=== PATIENT | male | born 1975 | race Caucasian/White ===

== ENCOUNTER 2025-04-07 04:39 | Emergency (ER) | payer BC, SELFPAY ==
--- OUTSIDE RECORDS SUMMARY | 2015-03-27 11:00 | XMS_ITS | Continuity of Care Document ---
Author Organization [facility] Address [address] [place] [address] Phone Care Team Providers Care Branch Rental Manager Name Role Phone Ajay Chavez MD Unavailable Unavailable Allergies, Adverse Reactions, Alerts Substance Reaction Status Criticality Sulfa (Sulfonamide Antibiotics) Active No Information Advance Directives Directive Yes / No Effective Date File Name No Information Encounters Encounter Description Practice Location Reason(s) For Visit Diagnoses Date Provider Providers Copied on Encounter [facility], [place], [address] [place] [address], [id number], tel:[phone] [facility], [place] No Information Scott Moss. [address], [place], [id number], . tel:[phone] Referring Provider: Ajay Chavez [address] [place] [address], [id number]. tel:[phone] Family History Family Member Type Diagnosis Age At Onset No Information Payers Payer name Insurance type Covered libertarian ID Authoriza tion(s) No Information Social History Type Description Quantity Date Captured Comments Alcohol Use Details No Caffeine Use Details Unknown Tobacco Use Status Non-smoker Smoking Status Unknown if ever smoked 15 Non-Smoking Tobacco Use Details : No Details Available : No Details Available Sex Male Vital Signs Date / Time: Height Weight BMI Pulse Rate Blood Pressure Temperature Respiratory Rate Body Surface Area Head Circumference BMI percentile Pulse Ox Inhaled Ox 5:15 PM 65.00 in 179.00 lbs 29.7 9 kg/m eter (2) 79 /min 145/100 mm[Hg] 98.2 F 16 /min Chief Complaint And Reason For Visit No Information Plan Of Treatment Date Type Action Status No Information History Of Present Illness Encounter Date Complaint History Of Prese nt Illness No Information Instructions Date Instruction Additional Infor mation No Information Assessments Type Assessment Date No Information
--- NOTE | ~2025-04-07 | CT_ITS ---
EXAMINATION: CT abdomen pelvis w con DATE: 04/07/2025 06:48 INDICATION: Epigastric abdominal pain TECHNIQUE: Computed tomography (CT) of the abdomen and pelvis was performed with 100 mL Omnipaque-350 intravenous contrast. Automated exposure control and iterative reconstruction technique were employed. The dose-length product was 796.84 mGy-cm. COMPARISON: None FINDINGS: Dependent atelectasis in the bilateral lower lobes with additional discoid atelectasis in the left lower lobe. Heart size is normal. No pericardial or pleural effusion. 2.9 x 2.1 cm likely hemangioma at the caudal tip of the right hepatic lobe which demonstrates combination of low attenuation with peripheral puddling of intense contrast enhancement isodense to the aorta. Gallbladder, spleen, pancreas, bilateral adrenal glands and kidneys are normal. Gas-filled duodenal diverticulum posterior to the head of the pancreas. No bowel obstruction. Multiple diverticula along the descending and sigmoid colon without adjacent from trace stranding to suggest diverticulitis. Normal appendix. Bladder is normal. No free intraperitoneal gas or fluid. No pathologically enlarged abdominal or pelvic lymphadenopathy. Mild thoracic spondylosis. IMPRESSION: 1. No acute intra-abdominal/pelvic process. 2. 2.9 x 2.1 cm lesion along the caudal margin of the right hepatic lobe with appearance most consistent with a hemangioma. Would consider multiphase pre and postcontrast MRI or CT for definitive determination. Reviewed, dictated and finalized at location A. IMPRESSION: 1. No acute intra-abdominal/pelvic process. 2. 2.9 x 2.1 cm lesion along the caudal margin of the right hepatic lobe with a ppearance most consistent with a hemangioma. Would consider multiphase pre and postcontrast MRI or CT for definitive determination.
[2025-04-07 04:43] VITALS: BP 150/108; PULSE 60; RESP 22; TEMP 36.4; O2SAT 98
[2025-04-07] MEDS: ONDANSETRON INJ 4 MG/2 ML VIAL IV PUSH (05:00)
[2025-04-07] MEDS: SODIUM CHLORIDE 0.9% IV 1,000 ML 999 ML IV CONT (05:00)
[2025-04-07] MEDS: MORPHINE SULFATE (*CRX) 4 MG/ML INJ IV PUSH ×2 (05:02→05:49)
[2025-04-07] MEDS: FAMOTIDINE 20 MG/2 ML VIAL IV PUSH (05:03)
[2025-04-07 05:17] LABS: Hematocrit 44.0 % (42.0-52.0); Hemoglobin 15.5 g/dL (14.0-18.0); Immature Granulocyte Percent A 1.4 % (0-0.5); Lymphocytes Absolute Auto 3.53 K/mm3 (0.9-3.2); Mean Corpuscular HGB Conc 35.2 g/dl (32-36); Mean Corpuscular Hemoglobin 31.3 pg (26-34); Mean Corpuscular Volume 88.7 fl (80-100); Nucleated Red Blood Cells Absolute Auto 0.000 K/mm3 (0.0-0.012); Nucleated Red Blood Cells Perc 0.0 % (0.0-0.2); Platelet Count Result 211 k/mm3 (150-375); Red Blood Count 4.96 M/mm3 (4.6-6.20); White Blood Count 11.8 K/mm3 (4.5-10.0)
--- NOTE | 2025-04-07 06:09 | ED.ABDPAIN ---
HPI - Abdominal Pain General Chief Complaint: Abdominal Pain Stated Complaint: vomitng and abd pain Time Seen by Provider: 04/07/25 04:40 History of Present Illness HPI narrative: Patient is a 49-year-old male who presents emergency department this evening complaining of abdominal pain across his epigastric region. Patient states that he has had similar symptoms in the past and he was told it was due to GERD. He states that he tried to take his anti acid medications at home prior to coming here with no improvement of his symptoms. Related Data Allergies Allergy/AdvReac Type Severity Reaction Status Date / Time Sulfa (Sulfonamide Allergy Unknown Unknown Verified 04/07/25 04:50 Antibiotics) Review of Systems Review of Systems: All systems are reviewed and are negative unless stated otherwise in the HPI. Exam Narrative: General: Alert, awake, afebrile, in moderate distress secondary to pain. HEENT: PERRL, no rhinorrhea, no post nasal drip, oropharynx clear. Neck: Trachea midline, no JVD, no lymphadenopathy. Cardiovascular: Regular rate and rhythm, no murmurs, rubs or gallops, no peripheral edema. Respiratory: Clear to auscultation bilaterally, no tachypnea, no wheezing, no rhonchi, no rubs, no respiratory distress. Abdomen: Soft, tenderness palpation over the mid epigastric region, nondistended, no rebound, no guarding, no peritoneal signs. Musculoskeletal: No joint swelling or deformity, normal muscle tone. Skin: No rashes or petechia, no signs of infection. Psychiatric: Alert and oriented, normal behavior and judgment for situation. Neurological: Alert and oriented to person, place, and time. Follows all commands. No focal deficits, speech is clear and fluent. Course Vital Signs Vital signs: Vital Signs Temperature 97.5 F L 04/07/25 04:43 Pulse Rate 60 04/07/25 04:43 Respiratory Rate 22 H 04/07/25 04:43 Blood Pressure 150/108 H 04/07/25 04:43 Pulse Oximetry 98 04/07/25 04:43 Oxygen Delivery Room Air 04/07/25 04:43 Temperature 98.7 F 04/07/25 09:18 Pulse Rate 74 04/07/25 09:18 Respiratory Rate 18 04/07/25 09:18 Blood Pressure 153/74 H 04/07/25 09:18 Pulse Oximetry 99 04/07/25 09:18 Oxygen Delivery Room Air 04/07/25 04:43 MDM - Abdominal Pain MDM Narrative Medical decision making narrative: The patient was evaluated by myself in the emergency department. History is obtained from patient who is an independent historian and physical exam was performed. External medical records were reviewed at this time. IV was established and pertinent tests were ordered. Patient was administered total of 8 mg of IV morphine and 4 mg IV Zofran for pain. EKG was obtained which revealed sinus bradycardia rate of 59 beats per minute, no evidence of acute ischemia. EKG was independently interpreted by me and is currently pending official cardiology read. Laboratory results obtained revealing no acute process. Urinalysis unremarkable. Imaging studies obtained included CT abdomen pelvis with IV contrast which was independently interpreted by me revealing [finding], which is pending final radiology interpretation. Differential diagnosis considerations include cholecystitis, pancreatitis, gastritis, peptic ulcer disease. Comorbidities impacting this visit include history of good I have evaluated and discussed social determinants of health with the patient that could potentially impact subsequent diagnosis and treatment plans. On repeat assessment of the patient, reevaluation revealed that the patient is doing well and is in no acute distress. Patient symptoms have improved since he arrived to our emergency department. Repeat vital signs were all reviewed and noted to be stable. Differential diagnosis and treatment plan were discussed with the patient at bedside. Patient agrees with discussion and after shared medical decision making agrees with discharge. All questions were answered to the patient's satisfaction. Patient will follow up with [ ] in 3-5 days. Patient was provided with strict return precautions and instructed to return to the emergency department if any new or worsening symptoms develop. The patient was discharged in stable condition. Lab Data 04/07/25 04:52 04/07/25 05:59 Labs: Lab Results 04/07/25 04/07/25 04/07/25 Range/Units 04:52 05:59 06:13 WBC 11.8 H (4.5-10.0) K/mm3 RBC 4.96 (4.6-6.20) M/mm3 Hgb 15.5 (14.0-18.0) g/dL Hct 44.0 (42.0-52.0) % MCV 88.7 (80-100) fl MCH 31.3 (26-34) pg MCHC 35.2 (32-36) g/dl RDW 13.4 (11.5-14.5) % Plt Count 211 (150-375) k/mm3 MPV 10.3 (7.4-10.4) fl Immature Gran % (Auto) 1.4 H (0-0.5) % Neut % (Auto) 61.3 (45.5-73.1) % Lymph % (Auto) 29.8 (18.3-44.2) % [place] % (Auto) 6.3 (2.6-8.5) % Eos % (Auto) 0.7 (0-4.4) % Baso % (Auto) 0.5 (0.2-1.2) % Lymph # (Auto) 3.53 H (0.9-3.2) K/mm3 [place] # (Auto) 0.7 H (0.1-0.6) K/mm3 Eos # (Auto) 0.1 (0-0.3) K/mm3 Baso # (Auto) 0.1 (0.0-0.1) K/mm3 Abs Immat Gran (auto) 0.16 H (0.00-0.031) K/mm3 Absolute Neuts (auto) 7.3 H (1.3-6.7) K/mm3 Absolute Nucleated RBC 0.000 (0.0-0.012) K/mm3 Nucleated RBC % 0.0 (0.0-0.2) % Sodium 138 (137-145) mmol/L Potassium 3.9 (3.4-5.0) mmol/L Chloride 102 (98-107) mmol/L Carbon Dioxide 23 (22-30) mmol/L Anion Gap 13 H (4-12) mmol/L BUN 18 (9-20) mg/dL Creatinine 1.04 (0.7-1.3) mg/dL Estim Creat Clear Calc Not Reportable Estimated GFR > 60 (59 - ) Glucose 171 H (65-110) mg/dL Calcium 9.8 (8.4-10.2) mg/dL Magnesium 2.0 (1.6-2.3) mg/dL Total Bilirubin 0.7 (0.2-1.3) mg/dL AST 32 (17-59) U/L ALT 30 (6-50) U/L Alkaline Phosphatase 80 (38-126) U/L Total Protein 7.4 (6.3-8.2) g/dL Albumin 4.5 (3.5-5.1) g/dL Lipase 124 (23-300) U/L Urine Color Yellow (Yellow) Urine Appearance Clear (Clear) Urine pH 7.0 (5.0-9.0) Ur Specific [place] 1.020 (1.001-1.035) Urine Protein Negative (Negative) mg/dL Urine Glucose (UA) Trace H (Negative) mg/dL Urine Ketones 1+ H (Negative) mg/dL Ur Blood (Man) Negative (Negative) Urine Nitrate Negative (Negative) Urine Bilirubin Negative (Negative) Urine Urobilinogen 1.0 (<2.0) mg/dL Leukocyte Esterase Rfl Negative (Negative) SULMEA/UL Imaging Data Radiologist's impression: ITS Impressions Abdomen/Pelvis CT 04/07/25 09:46 IMPRESSION: 1. No acute intra-abdominal/pelvic process. 2. 2.9 x 2.1 cm lesion along the caudal margin of the right hepatic lobe with appearance most consistent with a hemangioma. Would consider multiphase pre and postcontrast MRI or CT for definitive determination. Discharge Plan Discharge Clinical Impression: Abdominal pain Patient Disposition: Home Condition: Stable Instructions: Antibiotic Form, Abdominal Pain (ED) Additional Instructions: The CT scan shows small spot on your liver is recommended that you follow-up with your primary care provider and may need an MRI to further characterize this area. Patient Language: South African Prescriptions: New ondansetron 4 mg tablet,disintegrating 4 mg PO Q8H PRN (Reason: nausea and vomiting) Qty: 10 0RF pantoprazole [Protonix] 40 mg tablet,delayed release (DR/EC) 40 mg PO HS 28 Days Qty: 28 0RF Follow-up/Referrals: UNKNOWN,DOCTOR [Non-Staff] Time of Disposition: 08:29
--- NOTE | 2025-04-07 06:10 | ECG_ITS ---
Test Date: 2025-04-07 06:18:52 Measurements Intervals [place] Rate: 59 P: 16 HI: 161 QRS: -23 QRSD: 105 T: -11 QT: 407 QTc: 405 Interpretive Statements SINUS BRADYCARDIA WITH MARKED SINUS ARRHYTHMIA BORDERLINE LEFT AXIS DEVIATION [QRS AXIS < -20] VOLTAGE CRITERIA FOR LVH [MEETS CRITERIA IN ONE OF: R(aVL), S(V1), R(V5), R(V5/V6)+S(V1)] No previous ECG available for comparison Electronically Signed On 04-07-2025 10:53:52 CDT by Tristan Frausto M.D.
[2025-04-07 06:25] LABS: Alanine Aminotransferase 30 U/L (6-50); Albumin Level 4.5 g/dL (3.5-5.1); Alkaline Phosphatase 80 U/L (38-126); Anion Gap 13 mmol/L (4-12); Aspartate Amino Transferase 32 U/L (17-59); Bilirubin,Total 0.7 mg/dL (0.2-1.3); Blood Urea Nitrogen 18 mg/dL (9-20); Calcium 9.8 mg/dL (8.4-10.2); Carbon Dioxide 23 mmol/L (22-30); Chloride 102 mmol/L (98-107); Estimated Glomerular Filt Rate > 60; Glucose 171 mg/dL (65-110); Lipase 124 U/L (23-300); Magnesium 2.0 mg/dL (1.6-2.3); Potassium 3.9 mmol/L (3.4-5.0); Sodium 138 mmol/L (137-145); Total Protein 7.4 g/dL (6.3-8.2)
[2025-04-07 06:25] LABS: Add Urine Microscopic? NO; Appearance Urine Clear (Clear); Glucose Urine UA Trace mg/dL (Negative); Leukocyte Esterase Ur Negative LEU/UL (Negative); Nitrate Urine Negative (Negative); Specific Grav Ur 1.020 (1.001-1.035)
--- NOTE | 2025-04-07 06:40 | PC.NURSE ---
Pt taken to imaging in stretcher by tech
[2025-04-07 09:18] VITALS: BP 153/74; PULSE 74; RESP 18; TEMP 37.1; O2SAT 99
== END 2025-04-07 09:04 | disposition home or self-care (01) ==
PROVIDERS: Emergency Provider Emergency Medicine
DX: R10.13 Epigastric pain (principal); K76.9 Liver disease, unspecified; R00.1 Bradycardia, unspecified
CPT/HCPCS: 36415; 74177; 80053; 81003; 83690; 83735; 85025; 93005; 96361; 96374; 96375; 96376; 99284; J2270; J2405; J7030; Q9967

== ENCOUNTER 2025-04-08 17:34 | Observation (INO) | payer BC, SELFPAY ==
[2025-04-08] VITALS (7 sets, daily range): BP systolic 118–146; BP diastolic 88–101; PULSE 68–82; RESP 16–17; TEMP 36.6–37.2; O2SAT 94–97
--- NOTE | ~2025-04-08 | US_ITS ---
EXAMINATION: US abdomen limited DATE: 04/09/2025 09:55 INDICATION: Acute cholecystitis TECHNIQUE: Multiple grayscale and Doppler ultrasound images of the abdomen were obtained. COMPARISON: CT dated 04/07/2025 and 04/08/2025 FINDINGS: Liver has normal contour, with a smooth surface. There is increased parenchymal echogenicity and coarsened echotexture consistent with diffuse hepatic steatosis. There are small geographic regions of less echogenic focal fatty sparing along the gallbladder fossa. No intrahepatic biliary duct dilation suspected. Portal venous flow was seen in the hepatopetal, normal direction and has normal Doppler waveform. Mobile debris and shadowing gallstones in the dependent aspect of the gallbladder. Gallbladder appears normal with no abnormal wall thickening. There is however mild pericholecystic edema as seen on prior CT and which remains suspicious for acute cholecystitis. Sonographic Baca sign was however reported as negative by the corporate planning manager. The common bile duct measures up to 4 mm in maximal diameter which is normal. IMPRESSION: 1. Cholelithiasis with pericholecystic edema and inflammatory stranding but with negative sonographic Baca sign which is equivocal for acute cholecystitis. Could consider HIDA scan for further evaluation. Reviewed, dictated and finalized at location A. IMPRESSION: 1. Cholelithiasis with pericholecystic edema and inflammatory stranding but wit h negative sonographic Baca sign which is equivocal for acute cholecystitis. Could consider HIDA scan for further evaluation.
--- NOTE | ~2025-04-08 | CT_ITS ---
Exam: CT abdomen and pelvis without contrast Clinical History: [Epigastric abdominal pain radiating to left upper quadrant and right upper quadrant ] Comparison: [ CT abdomen and pelvis 04/07/2025] Technique: Multiple axial CT images of the abdomen and pelvis were obtained with and without IV contrast. Sagittal and coronal reformatted images were obtained. FINDINGS: Lung bases: [Small opacities in the lower lungs ] Liver: [ No intrahepatic biliary duct dilatation.] There is a 2.1 x 2.9 cm lesion in the right lobe of the liver posteriorly and caudally which demonstrates peripheral interrupted enhancement which fills in with delayed imaging. CT findings suggest a benign hemangioma. Gallbladder: Mild thickening of the weinstein of the gallbladder with a small amount of pericholecystic fat stranding and fluid. Findings are concerning for acute cholecystitis. Consider a HIDA scan for further assessment. Common bile duct: [ Normal caliber.] [ No stones.] Spleen: [ Within normal limits.] Pancreas: [ No mass. No pancreatic fluid collection.] Adrenals: [ No masses.] Kidneys: [ No masses. No hydronephrosis.][ ] Lymph nodes: [ No adenopathy in the abdomen or pelvis.] Stomach, small bowel and colon: [ No bowel wall thickening or obstruction.] Peritoneum cavity: Small amount of fluid in the pelvis. Bladder: [ Unremarkable.] Osseous structures: [ No acute fracture or destructive lesion.] [ Multilevel degenerative change in the visualized spine.] Abdominal aorta: [ No aneurysm.] Additional findings: [ None of significance.] IMPRESSION: 1. Mild thickening of the weinstein of the gallbladder with a small amount of pericholecystic fat stranding and fluid. Findings are concerning for acute cholecystitis. Consider a HIDA scan for further assessment. 2. CT findings suggest a benign 2.9 cm hemangioma in the right hepatic lobe. Reviewed, dictated and finalized at location Q. IMPRESSION: 1. Mild thickening of the weinstein of the gallbladder with a small amount of peric holecystic fat stranding and fluid. Findings are concerning for acute cholecyst itis. Consider a HIDA scan for further assessment. 2. CT findings suggest a benign 2.9 cm hemangioma in the right hepatic lobe.
--- NOTE | ~2025-04-08 | XR_ITS ---
EXAMINATION: XR chest 1V portable 04/08/2025 20:10 INDICATION: Epigastric pain. Radiates to chest TECHNIQUE:A single AP semiupright portable frontal image of the chest was obtained COMPARISON: None FINDINGS: Small opacities in the lower lungs The cardiomediastinal silhouette is within normal limits. There are no pleural effusions. There is no pneumothorax suspected. IMPRESSION: 1: Small opacities in the mid and lower lungs which represents atelectasis/scarring or infiltrates. Reviewed, dictated and finalized at location Q. IMPRESSION: 1: Small opacities in the mid and lower lungs which represents atelectasis/scar ring or infiltrates.
--- NOTE | 2025-04-08 19:03 | ED.ABDPAIN ---
HPI - Abdominal Pain General Chief Complaint: Abdominal Pain Stated Complaint: returning for stomach pain, seen here yesterday Time Seen by Provider: 04/08/25 18:27 Source: patient and family Mode of arrival: ambulatory Limitations: no limitations History of Present Illness HPI narrative: Patient presents with epigastric abdominal pain starting 2am Wednesday for which he was seen in the ED yesterday. Given medications and prescribed protonix (not taken as he had received dose in the ED) and Zofran (took earlier today). Not improved. Had previously been told when this occurred it might be gas pain versus GERD. Somewhat recently moved to this area. Unable to eat. Prevoiusly on sucralfate by an ER physician in [place], [place]. Pain 01/09. Took Tylenol [employer] AND [employer]. Nauseated ; no vomit today but yesterday. NO fevers but chills. no alcohol. NO NSAIDs. No prevoius abdominal surgeries. No regular GI needs. Had a colonoscopy last year which was normal. Pain radiates laterally under ribs, RUQ and LUQ and into chest. Related Data Home Medications ?Medication ?Instructions ?Recorded ?Confirmed ?Last Taken ?Type chlorthalidone 25 mg tablet mg 04/09/25 04/08/25 History potassium chloride 10 mEq meq PO 04/09/25 04/08/25 History tablet,extended release Allergies Allergy/AdvReac Type Severity Reaction Status Date / Time Sulfa (Sulfonamide Allergy Unknown Unknown Verified 04/07/25 04:50 Antibiotics) PMFSH Past Medical History Medical History Hypertension Surgical History Surgical History History of surgery on arm Social History Social History (Updated 04/10/25 @ 19:24 by Sudha Jerome MD) Smoking status: Never smoker Alcohol intake: never Substance use: never Substance use type: does not use Lack of Transportation: No Lack of Food: Never True Current Housing: I Have Housing Concerned About Future Housing: No Difficulty Paying Gas/Electric Bills: No Difficulty Paying for Meds: No Currently Unemployed: No Education: Bachelor's Degree Difficulty w/ Childcare or Family Care: No Living arrangements: with family Spiritual care concerns: No Exam Narrative: GENERAL: Well-appearing, well-nourished HEAD: Normocephalic, atraumatic. EYES: Non injected, non icteric ENT: Nares clear, no rhinorrhea or epistaxis. Gross auditory acuity intact. NECK: Supple. No meningismus. CHEST: Speaking in full sentences. No respiratory distress. HEART: Regular rate and rhythm. . ABDOMEN: Soft, nondistended. TTP in RUQ and LUQ and epigastrium. Not peritoneal. Baca sign +. EXTREMITIES: Normal range of motion. No lower extremity edema. SKIN: Warm, dry, no rash. NEURO: No focal deficits. Alert and oriented. Answering questions. Following commands. Normal speech without aphasia or dysarthria. PSYCH: Normal mood and affect. Course Vital Signs Vital signs: Vital Signs Temperature 98.9 F 04/08/25 17:35 Pulse Rate 82 04/08/25 17:35 Respiratory Rate 17 04/08/25 17:35 Blood Pressure 118/88 04/08/25 17:35 Pulse Oximetry 97 04/08/25 17:35 Oxygen Delivery Room Air 04/08/25 17:35 Temperature 99.1 F 04/10/25 12:00 Pulse Rate 70 04/10/25 12:00 Respiratory Rate 18 04/10/25 12:00 Blood Pressure 133/79 04/10/25 12:00 Pulse Oximetry 100 04/10/25 12:00 Oxygen Delivery Room Air 04/10/25 08:00 Oxygen Flow Rate 8 04/09/25 19:59 MDM - Abdominal Pain MDM Narrative Medical decision making narrative: Patient presents with epigastric abdominal pain starting 2am Wednesday. Seen yesterday in the ED for the same. In the emergency department they are afebrile with vital signs within normal limits. I did discuss with radiology receptionist to ensure that the correct study was ordered based on a notation in the scan obtained 04/07/2025. Because patient also endorses some radiation of pain into the chest, EKG, chest x-ray, and troponin ordered as well. Patient has microscopic hematuria on urinalysis. He has a leukocytosis, increased from most recent. Very mild hypokalemia, PO repletion ordered. Magnesium normal. There is a considerable delay in obtaining CT interpretation. Once CT results (as below), confirmed with patinet not on anticoagulation and last oral intake was at 12:30pm 04/08/25. COnfirmed again no previous abdominal surgeries. Discussed with on air host surgeon Dr Parsons who recommends antibiotics, npo, and order RUQ US to be performed in the AM, admit to medicine. Discussed with on air host hospitalist. Otherwise stable. PRN orders available for nausea and analgesics. Differential Diagnosis Differential diagnosis: Likely abdominal pain, calculus of kidney, constipation, diverticulitis, pancreatitis and other (biliary pathology; ACS; gastritis; GERD; malignancy; lobar PNA) Medical Records Attestation: I reviewed the patient's medical records. Medical records narrative: CT abd/pelvis with conrast 04/07/25 : IMPRESSION: 1. No acute intra-abdominal/pelvic process. 2. 2.9 x 2.1 cm lesion along the caudal margin of the right hepatic lobe with appearance most consistent with a hemangioma. Would consider multiphase pre and postcontrast MRI or CT for definitive determination. Lab Data Attestation: I reviewed the patient's lab results. 04/10/25 05:20 04/10/25 05:20 Labs: Lab Results 04/08/25 Range/Units 18:57 WBC 16.4 H (4.5-10.0) K/mm3 RBC 5.11 (4.6-6.20) M/mm3 Hgb 16.0 (14.0-18.0) g/dL Hct 44.7 (42.0-52.0) % MCV 87.5 (80-100) fl MCH 31.3 (26-34) pg MCHC 35.8 (32-36) g/dl RDW 13.3 (11.5-14.5) % Plt Count 216 (150-375) k/mm3 MPV 10.1 (7.4-10.4) fl Immature Gran % (Auto) 0.6 H (0-0.5) % Neut % (Auto) 72.0 (45.5-73.1) % Lymph % (Auto) 18.9 (18.3-44.2) % [place] % (Auto) 7.5 (2.6-8.5) % Eos % (Auto) 0.7 (0-4.4) % Baso % (Auto) 0.3 (0.2-1.2) % Lymph # (Auto) 3.11 (0.9-3.2) K/mm3 [place] # (Auto) 1.2 H (0.1-0.6) K/mm3 Eos # (Auto) 0.1 (0-0.3) K/mm3 Baso # (Auto) 0.1 (0.0-0.1) K/mm3 Abs Immat Gran (auto) 0.10 H (0.00-0.031) K/mm3 Absolute Neuts (auto) 11.8 H (1.3-6.7) K/mm3 Absolute Nucleated RBC 0.000 (0.0-0.012) K/mm3 Nucleated RBC % 0.0 (0.0-0.2) % Sodium 137 (137-145) mmol/L Potassium 3.3 L (3.4-5.0) mmol/L Chloride 101 (98-107) mmol/L Carbon Dioxide 26 (22-30) mmol/L Anion Gap 10 (4-12) mmol/L BUN 10 D (9-20) mg/dL Creatinine 0.99 (0.7-1.3) mg/dL Estim Creat Clear Calc 82 ml/min Estimated GFR > 60 (59 - ) Glucose 129 H (65-110) mg/dL Calcium 9.4 (8.4-10.2) mg/dL Magnesium 2.0 (1.6-2.3) mg/dL Total Bilirubin 1.7 H (0.2-1.3) mg/dL AST 33 (17-59) U/L ALT 34 (6-50) U/L Alkaline Phosphatase 79 (38-126) U/L Troponin I < 0.012 (0.000-0.034) ng/mL Total Protein 8.0 (6.3-8.2) g/dL Albumin 4.5 (3.5-5.1) g/dL Lipase 39 (23-300) U/L Urine Color Yellow (Yellow) Urine Appearance Turbid H (Clear) Urine pH 6.0 (5.0-9.0) Ur Specific [place] 1.027 (1.001-1.035) Urine Protein Trace (Negative) mg/dL Urine Glucose (UA) Negative (Negative) mg/dL Urine Ketones 2+ H (Negative) mg/dL Ur Blood (Man) 1+ H (Negative) Urine Nitrate Negative (Negative) Urine Bilirubin Negative (Negative) Urine Urobilinogen 1.0 (<2.0) mg/dL Leukocyte Esterase Rfl Negative (Negative) SULEMA/UL Urine RBC 11-20 H (0-2) /hpf Urine WBC 0-5 (0-3) /hpf Ur Squamous Epith Cells None seen (Few) /hpf Urine Bacteria None seen /hpf Urine Casts 0-2 Imaging Data Radiologist's impression: ITS Impressions Chest X-Ray 04/09/25 09:24 IMPRESSION: 1: Small opacities in the mid and lower lungs which represents atelectasis/scarring or infiltrates. Abdomen Ultrasound 04/09/25 10:22 IMPRESSION: 1. Cholelithiasis with pericholecystic edema and inflammatory stranding but with negative sonographic Baca sign which is equivocal for acute cholecystitis. Could consider HIDA scan for further evaluation. Abdomen/Pelvis CT 04/09/25 10:49 IMPRESSION: 1. Mild thickening of the weinstein of the gallbladder with a small amount of pericholecystic fat stranding and fluid. Findings are concerning for acute cholecystitis. Consider a HIDA scan for further assessment. 2. CT findings suggest a benign 2.9 cm hemangioma in the right hepatic lobe. CXR Stat Rad: Hypoinflation, consider interstitial edema or atypical infection CT Abd & Pelvis w/ wo contrast Stat Rad: Compared to prior [address] Probable acute cholecystitis with gallbladder distention and pericholecystic induration. Recommend scintigraphy if ambiguous. ECG Data EKG #1: Attestation: I personally reviewed and interpreted this ECG as follows: ECG completion date: 04/08/25 ECG completion time: 20:32 Prior ECG tracings: available for review (04/07/25 - had T wave inversion in III and T wave flattening versus inversion in avf ;) Interpretation: Normal sinus rhythm at a rate of 68 beats per minute. OR interval 158. QRS 107. QT/QTC 384/410. Progression the precordial leads. New inversion from as AVF upright in contiguous inferior lead 2. No Other T-wave inversions. Discharge Plan Discharge Clinical Impression: Epigastric abdominal pain, Microscopic hematuria, Leukocytosis, Hypokalemia, Acute cholecystitis Patient Disposition: Still a Patient Condition: Stable
[2025-04-08 19:05] LABS: Hematocrit 44.7 % (42.0-52.0); Hemoglobin 16.0 g/dL (14.0-18.0); Immature Granulocyte Percent A 0.6 % (0-0.5); Lymphocytes Absolute Auto 3.11 K/mm3 (0.9-3.2); Mean Corpuscular HGB Conc 35.8 g/dl (32-36); Mean Corpuscular Hemoglobin 31.3 pg (26-34); Mean Corpuscular Volume 87.5 fl (80-100); Nucleated Red Blood Cells Absolute Auto 0.000 K/mm3 (0.0-0.012); Nucleated Red Blood Cells Perc 0.0 % (0.0-0.2); Platelet Count Result 216 k/mm3 (150-375); Red Blood Count 5.11 M/mm3 (4.6-6.20); White Blood Count 16.4 K/mm3 (4.5-10.0)
[2025-04-08 19:09] LABS: Add Urine Microscopic? YES; Appearance Urine Turbid (Clear); Glucose Urine UA Negative (Negative); Leukocyte Esterase Ur Negative LEU/UL (Negative); Nitrate Urine Negative (Negative); Non Pathogenic Casts 0-2; Specific Grav Ur 1.027 (1.001-1.035)
--- NOTE | 2025-04-08 19:15 | ECG_ITS ---
Test Date: 2025-04-08 20:32:59 Measurements Intervals [place] Rate: 68 P: 12 NE: 158 QRS: -17 QRSD: 107 T: -7 QT: 384 QTc: 410 Interpretive Statements SINUS RHYTHM LEFT VENTRICULAR HYPERTROPHY NONSPECIFIC T-WAVE ABNORMALITIES Compared to ECG 04/07/2025 06:18:52 NO SIGNIFICANT CHANGES Electronically Signed On 04-08-2025 20:40:27 CDT by Tristan Frausto M.D.
[2025-04-08 19:18] LABS: Alanine Aminotransferase 34 U/L (6-50); Albumin Level 4.5 g/dL (3.5-5.1); Alkaline Phosphatase 79 U/L (38-126); Anion Gap 10 mmol/L (4-12); Aspartate Amino Transferase 33 U/L (17-59); Bilirubin,Total 1.7 mg/dL (0.2-1.3); Blood Urea Nitrogen 10 mg/dL (9-20); Calcium 9.4 mg/dL (8.4-10.2); Carbon Dioxide 26 mmol/L (22-30); Chloride 101 mmol/L (98-107); Estimated CRCL calculation 82 ml/min; Estimated Glomerular Filt Rate > 60; Glucose 129 mg/dL (65-110); Lipase 39 U/L (23-300); Potassium 3.3 mmol/L (3.4-5.0); Sodium 137 mmol/L (137-145); Total Protein 8.0 g/dL (6.3-8.2)
[2025-04-08 19:46] LABS: Troponin I < 0.012 ng/mL (0.000-0.034)
[2025-04-08 20:11] LABS: Magnesium 2.0 mg/dL (1.6-2.3)
[2025-04-08] MEDS: POTASSIUM BICARBONATE 25 MEQ TABEF PO (20:17)
[2025-04-08] MEDS: ONDANSETRON INJ 4 MG/2 ML VIAL IV PUSH (20:17)
[2025-04-08] MEDS: HYDROmorphone HCL INJ (*CRX) 1 MG/ML SYR 0.5 MG IV PUSH (20:17)
[2025-04-09] VITALS (13 sets, daily range): BP systolic 90–146; BP diastolic 55–92; PULSE 76–100; RESP 14–20; TEMP 36.2–38; O2SAT 90–96; BMI 31.7; BMI 31.6
[2025-04-09] MEDS: PIPERACILLIN/TAZOBACTAM SOD 4.5 GM in SODIUM CHLORIDE 0.9% IV 100 ML 200 ML IVPB (01:03)
[2025-04-09] MEDS: HYDROmorphone HCL INJ (*CRX) 1 MG/ML SYR 0.5 MG IV PUSH ×4 (01:03→21:10)
[2025-04-09] MEDS: ONDANSETRON INJ 4 MG/2 ML VIAL IV PUSH (01:04)
--- NOTE | 2025-04-09 01:44 | PC.NURSE ---
Patient arrived on unit to 302 at 0119 via wheelchair. Oriented to room, call light, fall precautions and diet. Patient verbalizes understanding.
[2025-04-09] MEDS: LACTATED RINGERS 1,000 ML 125 ML IV CONT ×3 (01:48→21:07)
--- NOTE | 2025-04-09 02:51 | PM.IMHP ---
H&P: HPI History of Present Illness Date/Time: 04/09/25 02:51 Chief Complaint: Abdominal pain, vomiting Narrative: 49-year-old male presents to [facility] ER on 04/08/2025 with the complaint of persistent nausea vomiting and abdominal pain. He has a history of hypertension. He initially presented to [facility] on 04/07/2025 and had a abdomen pelvis CT with contrast performed. This did not demonstrate any acute intra-abdominal or pelvic process but a 2.9 x 2.1 cm lesion along the caudal margin of the right hepatic lobe with appearance most consistent with a hemangioma. He was sent home with Protonix and Zofran advised to follow-up in the outpatient setting. He received morphine total of 8 mg and was feeling better. Since he got home he has been having progressively worsening abdominal pain which she describes as bilateral under the ribs. However when ER physician performed a Baca test he had severe right upper quadrant pain. He has had a poor appetite in the past few days and last had a small bowel movement on 04/07/2025. Denies fever, shortness of breath, chest pain, abdominal distension, diarrhea. He has never had any abdominal surgeries. He denies smoking, illicit drug use, alcohol abuse. He lives with his . ER findings include probable acute cholecystitis with gallbladder distention and pericholecystic induration on CT of abdomen pelvis with and without contrast compared to the prior CT. Chest x-ray unrevealing of acute cardiopulmonary abnormality, official radiology interpretation is pending. His WBC count is 16.4 increased from 11.8 the day prior potassium 3.3. Total bilirubin 1.7 increasing from normal the day prior. LFTs otherwise within normal limits. Troponin 0.012. EKG without acute ST changes. Lipase 39. He was given Zosyn, Zofran, Dilaudid 0.5 mg IV x 2, potassium bicarbonate 25 mEq. Started on lactated Ringer's at 125 cc/hour. Patient was feeling much better after this. Review of Systems Review of Systems: All systems reviewed & are unremarkable except as noted in HPI and below (Subjective) [facility] Past Medical History Medical History (Updated 04/09/25 @ 02:49 by Fatmata Mar RN) Hypertension Social History Social History Smoking status: Never smoker Alcohol intake: never Substance use: never Substance use type: does not use Lack of Transportation: No Lack of Food: Never True Current Housing: I Have Housing Concerned About Future Housing: No Difficulty Paying Gas/Electric Bills: No Difficulty Paying for Meds: No Currently Unemployed: No Education: Bachelor's Degree Difficulty w/ Childcare or Family Care: No Spiritual care concerns: No Meds Home Medications and Allergies Home Medications ?Medication ?Instructions ?Recorded ?Confirmed ?Type ondansetron 4 mg disintegrating 4 mg PO Q8H PRN nausea and 04/07/25 Rx tablet vomiting #10 tabs pantoprazole 40 mg tablet,delayed 40 mg PO HS 4 weeks #28 tabs 04/07/25 Rx release (Protonix) chlorthalidone 25 mg tablet mg 04/09/25 History potassium chloride 10 mEq meq PO 04/09/25 History tablet,extended release Allergies Allergy/AdvReac Type Severity Reaction Status Date / Time Sulfa (Sulfonamide Allergy Unknown Unknown Verified 04/07/25 04:50 Antibiotics) Vital Signs Vital Signs - 24 hr 04/08/25 17:35 04/08/25 18:31 04/08/25 19:17 Temperature 98.9 F 97.8 F Pulse Rate 82 68 Respiratory Rate 17 16 Blood Pressure 118/88 135/92 H 146/99 H Pulse Oximetry 97 96 94 Oxygen Delivery Room Air 04/08/25 20:02 04/08/25 21:31 04/08/25 22:16 Temperature Pulse Rate Respiratory Rate Blood Pressure 127/96 H 139/101 H 140/98 H Pulse Oximetry 97 95 95 Oxygen Delivery 04/08/25 23:01 04/09/25 01:22 Temperature 97.2 F L Pulse Rate 89 Respiratory Rate 16 Blood Pressure 124/91 H 133/89 Pulse Oximetry 94 95 Oxygen Delivery Exam Const: General: comfortable and no acute distress Other: A&O x3 HENMT: Mouth: Yes dry mucous membranes Eyes: Pupils: Equal, round and reactive pupils present Resp: Effort & Inspection: normal respiratory effort Auscultation: clear to auscultation bilaterally Cardio: Rate: regular rate Rhythm: regular rhythm GI: Inspection: non-distended GI Palp: Yes Soft to palpation Other: Hypoactive bowel sounds. Positive Baca sign : General: Yes bladder normal to palpation Neuro: Motor exam (neuro): 5/5 motor strength present throughout Extrem: General: no edema H&P: Results Labs Labs: Short CBC 04/08/25 Range/Units 18:57 WBC 16.4 H (4.5-10.0) K/mm3 Hgb 16.0 (14.0-18.0) g/dL Hct 44.7 (42.0-52.0) % Plt Count 216 (150-375) k/mm3 BMP 04/08/25 18:57 Sodium 137 Potassium 3.3 L Chloride 101 Carbon Dioxide 26 BUN 10 D Creatinine 0.99 Glucose 129 H Calcium 9.4 Cardiac Enzymes 04/08/25 Range/Units 18:57 Troponin I < 0.012 (0.000-0.034) ng/mL Liver Function 04/08/25 Range/Units 18:57 Total Bilirubin 1.7 H (0.2-1.3) mg/dL AST 33 (17-59) U/L ALT 34 (6-50) U/L Alkaline Phosphatase 79 (38-126) U/L Albumin 4.5 (3.5-5.1) g/dL Urine 04/08/25 Range/Units 18:57 Urine Color Yellow (Yellow) Urine Appearance Turbid H (Clear) Urine pH 6.0 (5.0-9.0) Ur Specific [place] 1.027 (1.001-1.035) Urine Protein Trace (Negative) mg/dL Urine Glucose (UA) Negative (Negative) mg/dL Assessment and Plan Assessment and plan (1) Acute cholecystitis: Code(s): K81.0 - Acute cholecystitis Status: Acute (2) Leukocytosis: Code(s): D72.829 - Elevated white blood cell count, unspecified Status: Acute (3) Hypokalemia: Code(s): E87.6 - Hypokalemia Status: Acute Plan 49-year-old male presents to [facility] ER on 04/08/2025 with the complaint of persistent nausea vomiting and abdominal pain. He has a history of hypertension. He initially presented to [facility] on 04/07/2025 and had a abdomen pelvis CT with contrast performed. This did not demonstrate any acute intra-abdominal or pelvic process but a 2.9 x 2.1 cm lesion along the caudal margin of the right hepatic lobe with appearance most consistent with a hemangioma. He was sent home with Protonix and Zofran advised to follow-up in the outpatient setting. He received morphine total of 8 mg and was feeling better. Since he got home he has been having progressively worsening abdominal pain which she describes as bilateral under the ribs. However when ER physician performed a Baca test he had severe right upper quadrant pain. He has had a poor appetite in the past few days and last had a small bowel movement on 04/07/2025. Denies fever, shortness of breath, chest pain, abdominal distension, diarrhea. He has never had any abdominal surgeries. He denies smoking, illicit drug use, alcohol abuse. He lives with his . ER findings include probable acute cholecystitis with gallbladder distention and pericholecystic induration on CT of abdomen pelvis with and without contrast compared to the prior CT. Chest x-ray unrevealing of acute cardiopulmonary abnormality, official radiology interpretation is pending. His WBC count is 16.4 increased from 11.8 the day prior potassium 3.3. Total bilirubin 1.7 increasing from normal the day prior. LFTs otherwise within normal limits. Troponin 0.012. EKG without acute ST changes. Lipase 39. He was given Zosyn, Zofran, Dilaudid 0.5 mg IV x 2, potassium bicarbonate 25 mEq. Started on lactated Ringer's at 125 cc/hour. Patient was feeling much better after this. ----- General surgery consulted from the ER. They requested admission with the hospitalist service and a right upper quadrant ultrasound. We will continue Zosyn at 3.375 g IV q.6 hours. Repeat potassium to ensure improvement of hypokalemia. Continue LR 125 cc/hour. Zofran p.r.n.. Dilaudid p.r.n.. Patient does not have any lung conditions or MARYURI. He is on room air. NPO. SCDs. Trend LFTs. Trend leukocytosis. Appreciate General surgery recommendations. Hold TIP STRETCHER antihypertensives. Monitor blood pressure. Patient wishes to be full code. He is independent at baseline and lives with at home. Hospitalist [facility] Advance Care Plan I have confirmed that the patient's Advanced Care Plan is present, code status is documented, or surrogate decision maker is listed in patient medical record.: Yes Medication Reconciliation I have utilized all available resources to obtain, update and review the patients current medications (includes all prescriptions, OTC, herbals, cannabis, and nutritional supplements).: Yes
[2025-04-09] MEDS: PIPERACILLIN/TAZOBACTAM SOD 3.375 GM in SODIUM CHLORIDE 0.9% IV 50 ML 100 ML IVPB ×3 (05:13→18:58)
[2025-04-09 05:44] LABS: Hematocrit 41.3 % (42.0-52.0); Hemoglobin 14.2 g/dL (14.0-18.0); Immature Granulocyte Percent A 0.5 % (0-0.5); Lymphocytes Absolute Auto 2.79 K/mm3 (0.9-3.2); Mean Corpuscular HGB Conc 34.4 g/dl (32-36); Mean Corpuscular Hemoglobin 30.8 pg (26-34); Mean Corpuscular Volume 89.6 fl (80-100); Nucleated Red Blood Cells Absolute Auto 0.000 K/mm3 (0.0-0.012); Nucleated Red Blood Cells Perc 0.0 % (0.0-0.2); Platelet Count Result 180 k/mm3 (150-375); Red Blood Count 4.61 M/mm3 (4.6-6.20); White Blood Count 13.0 K/mm3 (4.5-10.0)
[2025-04-09 05:57] LABS: INR 1.1; Prothrombin Time 14.4 Seconds (11.1-14.7)
[2025-04-09 05:58] LABS: Alanine Aminotransferase 32 U/L (6-50); Albumin Level 3.9 g/dL (3.5-5.1); Alkaline Phosphatase 67 U/L (38-126); Anion Gap 8 mmol/L (4-12); Aspartate Amino Transferase 34 U/L (17-59); Bilirubin,Total 1.8 mg/dL (0.2-1.3); Blood Urea Nitrogen 10 mg/dL (9-20); Calcium 8.8 mg/dL (8.4-10.2); Carbon Dioxide 31 mmol/L (22-30); Chloride 98 mmol/L (98-107); Estimated CRCL calculation 76 ml/min; Estimated Glomerular Filt Rate > 60; Glucose 120 mg/dL (65-110); Magnesium 2.0 mg/dL (1.6-2.3); Potassium 3.3 mmol/L (3.4-5.0); Sodium 137 mmol/L (137-145); Total Protein 6.9 g/dL (6.3-8.2)
[2025-04-09 06:15] LABS: Procalcitonin 0.2 ng/mL
--- NOTE | 2025-04-09 07:10 | PM.IMPN ---
Progress Note: A&P Assessment and Plan (1) Acute cholecystitis: Code(s): K81.0 - Acute cholecystitis Status: Acute Assessment and Plan: ER findings include probable acute cholecystitis with gallbladder distention and pericholecystic induration on CT of abdomen pelvis with and without contrast compared to the prior CT. Chest x-ray unrevealing of acute cardiopulmonary abnormality, official radiology interpretation is pending. His WBC count is 16.4 increased from 11.8 the day prior Total bilirubin 1.7 increasing from normal the day prior. LFTs otherwise within normal limits. General surgery consulted US of RUQ completed, pending results NPO IV Zosyn IV fluids plan for OR today for lap cholecystectomy (2) Leukocytosis: Code(s): D72.829 - Elevated white blood cell count, unspecified Status: Acute Assessment and Plan: WBC 16.4 on admission WBC 13 today continue IV Zosyn f/u blood cultures AM labs (3) Hypokalemia: Code(s): E87.6 - Hypokalemia Status: Acute Assessment and Plan: k 3.3 today 40 mEq potassium chloride IVPB ordered check magnesium level AM labs Subjective Date/time seen: 04/09/25 07:10 Interval history: Patient is a 49 year old male with PMH of HTN. Patient presented to the ER with abdominal pain. ER findings include probable acute cholecystitis with gallbladder distention and pericholecystic induration on CT of abdomen pelvis with and without contrast compared to the prior CT. Chest x-ray unrevealing of acute cardiopulmonary abnormality, official radiology interpretation is pending. His WBC count is 16.4 increased from 11.8 the day prior potassium 3.3. Total bilirubin 1.7 increasing from normal the day prior. LFTs otherwise within normal limits. Troponin 0.012. EKG without acute ST changes. Lipase 39. Patient was admitted for further evaluation and treatment. General surgery was consulted. Patient seen and examined for follow up. Patient seen in his room, lying in bed, in no acute distress. Patient with complaints of a headache, new order for Tylenol PRN. Patient had an US of the abdomen, results are pending. Patient is NPO with plans for surgery this afternoon. Patient's potassium level is 3.3 and will be given 40 mEq potassium chloride IVPB. Patient's WBC count improved to 13 today, continued on IV antibiotics. Review of Systems Review of Systems: All systems reviewed & are unremarkable except as noted in HPI and below (Subjective) Exam Const: General: comfortable and no acute distress Other: A&O x3 HENMT: Mouth: Yes dry mucous membranes Eyes: Pupils: Equal, round and reactive pupils present Resp: Effort & Inspection: normal respiratory effort Auscultation: clear to auscultation bilaterally Cardio: Rate: regular rate Rhythm: regular rhythm GI: Inspection: non-distended Other: Hypoactive bowel sounds. Skin: General skin exam: normal color and no rashes or lesions noted Neuro: Cranial nerves: Yes Equal, round and reactive pupils present Motor exam (neuro): 5/5 motor strength present throughout Extrem: General: no edema Objective Data Vital Signs Vital Signs: Vital Signs - 24 hr 04/08/25 17:35 04/08/25 18:31 04/08/25 19:17 Temperature 98.9 F 97.8 F Pulse Rate 82 68 Respiratory Rate 17 16 Blood Pressure 118/88 135/92 H 146/99 H Pulse Oximetry 97 96 94 Oxygen Delivery Room Air 04/08/25 20:02 04/08/25 21:31 04/08/25 22:16 Temperature Pulse Rate Respiratory Rate Blood Pressure 127/96 H 139/101 H 140/98 H Pulse Oximetry 97 95 95 Oxygen Delivery 04/08/25 23:01 04/09/25 01:22 04/09/25 04:40 Temperature 97.2 F L 98 F Pulse Rate 89 76 Respiratory Rate 16 18 Blood Pressure 124/91 H 133/89 104/62 Pulse Oximetry 94 95 92 Oxygen Delivery Intake/Output Intake/Output: Intake & Output 04/06/25 04/07/25 04/08/25 04/09/25 23:59 23:59 23:59 23:59 Intake Total 50 Balance 50 Meds/Results Medications: Active Medications Generic Name Dose Route Start Last Admin Trade Name Freq PRN Reason Stop Dose Admin Hydromorphone HCl 0.5 mg 04/09/25 00:39 Hydromorphone Hcl Inj (*Crx) 1 Mg/Ml Syr IV PUSH Q4H PRN Pain Rated 7-10 Lactated Ringer's 1,000 mls @ 125 mls/hr 04/09/25 00:40 04/09/25 01:48 Lr - Lactated Ringers Iv IV CONT 125 mls/hr .Q8H DELFIN Administration Piperacillin Sod/Tazobactam 50 mls @ 100 mls/hr 04/09/25 06:00 04/09/25 05:59 Sod 3.375 gm/ Sodium Chloride IVPB Infused Q6H DELFIN Infusion Potassium Chloride 40 meq/ 520 mls @ 130 mls/hr 04/09/25 07:09 Sodium Chloride IVPB 04/09/25 11:08 ONCE ONE Ondansetron HCl 4 mg 04/09/25 00:39 Ondansetron Inj 4 Mg/2 Ml Vial IV PUSH Q4H PRN Nausea Labs Labs: Laboratory Results - last 24 hr 04/08/25 04/09/25 18:57 05:09 WBC 16.4 H 13.0 H RBC 5.11 4.61 Hgb 16.0 14.2 Hct 44.7 41.3 L MCV 87.5 89.6 MCH 31.3 30.8 MCHC 35.8 34.4 RDW 13.3 13.5 Plt Count 216 180 MPV 10.1 10.0 Immature Gran % (Auto) 0.6 H 0.5 Neut % (Auto) 72.0 69.2 Lymph % (Auto) 18.9 21.5 [place] % (Auto) 7.5 7.6 Eos % (Auto) 0.7 1.0 Baso % (Auto) 0.3 0.2 Lymph # (Auto) 3.11 2.79 [place] # (Auto) 1.2 H 1.0 H Eos # (Auto) 0.1 0.1 Baso # (Auto) 0.1 0.0 Abs Immat Gran (auto) 0.10 H 0.06 H Absolute Neuts (auto) 11.8 H 9.0 H Absolute Nucleated RBC 0.000 0.000 Nucleated RBC % 0.0 0.0 PT 14.4 INR 1.1 Sodium 137 137 Potassium 3.3 L 3.3 L Chloride 101 98 Carbon Dioxide 26 31 H Anion Gap 10 8 BUN 10 D 10 Creatinine 0.99 1.08 Estim Creat Clear Calc 82 76 Estimated GFR > 60 > 60 Glucose 129 H 120 H Calcium 9.4 8.8 Magnesium 2.0 2.0 Total Bilirubin 1.7 H 1.8 H AST 33 34 ALT 34 32 Alkaline Phosphatase 79 67 Troponin I < 0.012 Total Protein 8.0 6.9 Albumin 4.5 3.9 Lipase 39 Procalcitonin 0.2 Urine Color Yellow Urine Appearance Turbid H Urine pH 6.0 Ur Specific [place] 1.027 Urine Protein Trace Urine Glucose (UA) Negative Urine Ketones 2+ H Ur Blood (Man) 1+ H Urine Nitrate Negative Urine Bilirubin Negative Urine Urobilinogen 1.0 Leukocyte Esterase Rfl Negative Urine RBC 11-20 H Urine WBC 0-5 Ur Squamous Epith Cells None seen Urine Bacteria None seen Urine Casts 0-2 Quality VTE Prophylaxis VTE prophylaxis: mechanical ordered
[2025-04-09] MEDS: POTASSIUM CHLORIDE INJ 40 MEQ in SODIUM CHLORIDE 0.9% IV 500 ML 130 MEQ IVPB (07:46)
[2025-04-09] MEDS: ACETAMINOPHEN 325 MG TABLET 650 MG PO (09:51)
--- NOTE | 2025-04-09 09:51 | P.CONGS_ITS ---
Assessment and Plan Assessment and plan (1) Acute cholecystitis: Code(s): K81.0 - Acute cholecystitis Status: Acute Assessment and Plan: * Patient presents to the ER for the second time in the past 2 days with epigastric abdominal pain. CT scan on the second ER visit showed findings concerning for acute cholecystitis. No gallstones visible on CT. WBC and total bilirubin were also up from his initial ER visit. Total bilirubin this morning is 1.8. RUQ abdominal ultrasound done this morning and showed cholelithiasis with pericholecystic edema and inflammatory stranding. Negative sonographic Baca's sign, but the patient had Dilaudid prior to his ultrasound. His common bile duct is normal and no findings to suggest choledocholithiasis on any imaging. Discussed treatment options with the patient in detail of both nonoperative versus surgical management. We discussed the option of proceeding with a laparoscopic cholecystectomy by Dr. Parsons under general anesthesia later today. Description of the procedure, risks, benefits, alternatives, and expected recovery were discussed with the patient in detail. We discussed the risks of bile leak and bile duct injury, liver/bowel injury, bleeding, and infection. Also discussed the possibility of having to convert to an open procedure if necessary. He understands and agrees to proceed with surgery. All questions were answered. Will keep him NPO and continue IV Zosyn and IV fluids while awaiting surgery. (2) Elevated bilirubin: Code(s): R17 - Unspecified jaundice Status: Acute Assessment and Plan: * Total bilirubin up to 1.7 when returning to the ER for a second time, and up to 1.8 this morning. No findings of intra/extrahepatic biliary duct dilatation on imaging. Could be related to cholecystitis. Bilirubin on 04/07 was normal. Will trend labs. (3) Hypokalemia: Code(s): E87.6 - Hypokalemia Status: Acute Assessment and Plan: * Potassium 3.3 and being replaced with IV KCL this morning. (4) Hypertension: Code(s): I10 - Essential (primary) hypertension Status: Chronic Assessment and Plan: * BP stable. Management per Hospitalist. Plan I have discussed the patient's case and plan of care with Dr. Parsons. History of Present Illness Consult details Consult date: 04/09/25 Reason for consult: other (Acute cholecystitis) Requesting physician: Melani Barragan MD Narrative: This is a 49-year-old male with history of hypertension, who we have been asked to see in surgical consultation for acute cholecystitis. He developed epigastric pain around 2:30 am 2 days ago. He woke up from sleep with the pain. He had pasta for dinner the night before. He has experienced this pain a few times in the past and has been seen in the ED on 3 occasions for this pain. He attempted to take OTC antacids and Gas-X without relief. He developed nausea and vomited. He reports the pain goes across his upper abdomen and radiated around the right side to his mid upper back. Due to his persistent symptoms he went to the ED later that morning on 04/07/25. Labs showed mild leukocytosis with a WBC count of 11,000 and LFTs were normal. CT scan of the abdomen and pelvis showed no acute intraabdominal process with a 2.9 cm lesion along the caudal margin of the right hepatic lobe with appearance most consistent with hemangioma. He received 8 mg of Morphine and 4 mg of Zofran with improvement in symptoms. He was discharged home with Zofran and Protonix. He continued to have pain at home after discharge without relief with the medications prescribed, therefore he returned to the ED yesterday evening for evaluation. He reports his pain was going up into his chest. EKG without acute ischemic changes. Chest x-ray showed small opacities in the mid and lower lungs, which may represent atelectasis or infiltrates. Troponin negative. He had another CT scan of the abdomen and pelvis with and without IV contrast that showed mild thickening of the weinstein of the gallbladder with pericholecystic fat stranding and fluid, concerning for acute cholecystitis, and again a benign- appearing 2.9 cm hemangioma in the right hepatic lobe. He was admitted and started on IV Zosyn. His abdominal pain is better this morning after receiving Dilaudid. RUQ US taken this morning. The results were still pending when I saw the patient. No previous abdominal surgeries. Review of Systems 2 Review of Systems: All systems reviewed & are unremarkable except as noted in HPI and below PMFSH Past Medical History Medical History Hypertension Surgical History Surgical History History of surgery on arm Social History Social History Smoking status: Never smoker Alcohol intake: never Substance use: never Substance use type: does not use Lack of Transportation: No Lack of Food: Never True Current Housing: I Have Housing Concerned About Future Housing: No Difficulty Paying Gas/Electric Bills: No Difficulty Paying for Meds: No Currently Unemployed: No Education: Bachelor's Degree Difficulty w/ Childcare or Family Care: No Spiritual care concerns: No Meds Home Medications and Allergies Home Medications ?Medication ?Instructions ?Recorded ?Confirmed ?Type ondansetron 4 mg disintegrating 4 mg PO Q8H PRN nausea and 04/07/25 Rx tablet vomiting #10 tabs pantoprazole 40 mg tablet,delayed 40 mg PO HS 4 weeks #28 tabs 04/07/25 Rx release (Protonix) chlorthalidone 25 mg tablet mg 04/09/25 History potassium chloride 10 mEq meq PO 04/09/25 History tablet,extended release Allergies Allergy/AdvReac Type Severity Reaction Status Date / Time Sulfa (Sulfonamide Allergy Unknown Unknown Verified 04/07/25 04:50 Antibiotics) Vital Signs Vital Signs - 24 hr 04/08/25 17:35 04/08/25 18:31 04/08/25 19:17 Temperature 98.9 F 97.8 F Pulse Rate 82 68 Respiratory Rate 17 16 Blood Pressure 118/88 135/92 H 146/99 H Pulse Oximetry 97 96 94 Oxygen Delivery Room Air 04/08/25 20:02 04/08/25 21:31 04/08/25 22:16 Temperature Pulse Rate Respiratory Rate Blood Pressure 127/96 H 139/101 H 140/98 H Pulse Oximetry 97 95 95 Oxygen Delivery 04/08/25 23:01 04/09/25 01:22 04/09/25 04:40 Temperature 97.2 F L 98 F Pulse Rate 89 76 Respiratory Rate 16 18 Blood Pressure 124/91 H 133/89 104/62 Pulse Oximetry 94 95 92 Oxygen Delivery 04/09/25 08:00 04/09/25 08:35 Temperature Pulse Rate Respiratory Rate Blood Pressure Pulse Oximetry 90 Oxygen Delivery Room Air Room Air Exam 2 Const: General: comfortable and no acute distress Nutritional Appearance: a verage body habitus Orientation/consciousness: patient oriented x3 HENMT: Head: normocephalic and atraumatic Ears: hearing grossly normal bilaterally Mouth: Yes moist mucous membranes Eyes: General: appearance normal, both eyes and all related structures P upils: Equal, round and reactive pupils present Neck: Neck: normal visual inspection and full ROM Resp: Effort & Inspection: no respiratory distress Auscultation: clear to auscultation bilaterally Cardio: Rate: regular rate Rhythm: regular rhythm Peripheral pulses: P eripheral pulses 2+ throughout GI: Inspection: non-distended GI Palp: Yes Soft to palpation, Yes Tenderness to palpation present (GI) (epigastric and RUQ), Yes Guarding due to palpation present (GI) (RUQ), Yes No hepatosplenomegaly present, No Hernia present and No Rebound tenderness present Percussion: Yes normal to percussion Auscultation: normal bowel sounds Rectal Exam: deferred Skin: General skin exam: normal color Neuro: General: moves all extremities and no focal motor deficits Speech: n ormal speech Motor exam (neuro): 5/5 motor strength present throughout Extrem: General: normal to inspection and no edema Psych: Mental Status: mental status grossly normal Attitude: cooperative Insight: Good insight present (Psych) Judgement: Good judgement present (Psych) Results Labs 04/09/25 05:09 04/09/25 05:09 Labs: Abnormal lab results 04/08/25 04/09/25 Range/Units 18:57 05:09 WBC 16.4 H 13.0 H (4.5-10.0) K/mm3 Hct 41.3 L (42.0-52.0) % Immature Gran % (Auto) 0.6 H (0-0.5) % [place] # (Auto) 1.2 H 1.0 H (0.1-0.6) K/mm3 Abs Immat Gran (auto) 0.10 H 0.06 H (0.00-0.031) K/mm3 Absolute Neuts (auto) 11.8 H 9.0 H (1.3-6.7) K/mm3 Potassium 3.3 L 3.3 L (3.4-5.0) mmol/L Carbon Dioxide 31 H (22-30) mmol/L Glucose 129 H 120 H (65-110) mg/dL Total Bilirubin 1.7 H 1.8 H (0.2-1.3) mg/dL Urine Appearance Turbid H (Clear) Urine Ketones 2+ H (Negative) mg/dL Ur Blood (Man) 1+ H (Negative) Urine RBC 11-20 H (0-2) /hpf Diabetes panel 04/08/25 04/09/25 Range/Units 18:57 05:09 Sodium 137 137 (137-145) mmol/L Potassium 3.3 L 3.3 L (3.4-5.0) mmol/L Chloride 101 98 (98-107) mmol/L Carbon Dioxide 26 31 H (22-30) mmol/L BUN 10 D 10 (9-20) mg/dL Creatinine 0.99 1.08 (0.7-1.3) mg/dL Glucose 129 H 120 H (65-110) mg/dL Calcium 9.4 8.8 (8.4-10.2) mg/dL AST 33 34 (17-59) U/L ALT 34 32 (6-50) U/L Alkaline Phosphatase 79 67 (38-126) U/L Total Protein 8.0 6.9 (6.3-8.2) g/dL Albumin 4.5 3.9 (3.5-5.1) g/dL Calcium panel 04/08/25 04/09/25 Range/Units 18:57 05:09 Calcium 9.4 8.8 (8.4-10.2) mg/dL Albumin 4.5 3.9 (3.5-5.1) g/dL Pituitary panel 04/08/25 04/09/25 Range/Units 18:57 05:09 Sodium 137 137 (137-145) mmol/L Potassium 3.3 L 3.3 L (3.4-5.0) mmol/L Chloride 101 98 (98-107) mmol/L Carbon Dioxide 26 31 H (22-30) mmol/L BUN 10 D 10 (9-20) mg/dL Creatinine 0.99 1.08 (0.7-1.3) mg/dL Glucose 129 H 120 H (65-110) mg/dL Calcium 9.4 8.8 (8.4-10.2) mg/dL Adrenal panel 04/08/25 04/09/25 Range/Units 18:57 05:09 Sodium 137 137 (137-145) mmol/L Potassium 3.3 L 3.3 L (3.4-5.0) mmol/L Chloride 101 98 (98-107) mmol/L Carbon Dioxide 26 31 H (22-30) mmol/L BUN 10 D 10 (9-20) mg/dL Creatinine 0.99 1.08 (0.7-1.3) mg/dL Glucose 129 H 120 H (65-110) mg/dL Calcium 9.4 8.8 (8.4-10.2) mg/dL Total Bilirubin 1.7 H 1.8 H (0.2-1.3) mg/dL AST 33 34 (17-59) U/L ALT 34 32 (6-50) U/L Alkaline Phosphatase 79 67 (38-126) U/L Total Protein 8.0 6.9 (6.3-8.2) g/dL Albumin 4.5 3.9 (3.5-5.1) g/dL All other labs normal. Imaging Additional studies: ITS Impressions Chest X-Ray 04/09/25 09:24 IMPRESSION: 1: Small opacities in the mid and lower lungs which represents atelectasis/scarring or infiltrates.
[2025-04-09] MEDS: LACTATED RINGERS 1,000 ML 30 ML IV CONT ×2 (15:30→19:44)
[2025-04-09] MEDS: ACETAMINOPHEN 500 MG TABLET 1000 MG PO (16:08)
[2025-04-09] MEDS: KETOROLAC 15 MG/ML VIAL (*BKC) IV PUSH (16:11)
--- NOTE | 2025-04-09 17:39 | WPDHPUPDATE1 ---
History and Physical Update Update Date/Time: 04/09/25 17:39 History and Physical has been reviewed, including an updated exam of the patient. There are NO changes in the patient's condition. Risks, benefits, and alternatives have been discussed and questions answered. Patient agrees to proceed with procedure.
--- NOTE | 2025-04-09 18:07 | P.PNAN_ITS ---
Anes - Initial Pre Proc Eval Procedure: Operation Date: 04/09/25 16:00 Proposed Procedures p Laparoscopic Cholecystectomy - Devon Parsons MD Date/Time: 04/09/25 18:07 Surgeon: Melani Barragan MD Pre Op Diagnosis: Acute Cholecystitis Patient Data Age: 49 Gender: M Height: 1.65 m Weight: 86.4 kg Last Vital Signs Temp 37.3 C 04/09/25 14:00 Pulse 92 04/09/25 14:00 Resp 18 04/09/25 14:00 BP 146/92 H 04/09/25 14:00 Pulse Ox 96 04/09/25 14:00 O2 Del Method Room Air 04/09/25 08:35 Allergies Allergy/AdvReac Type Severity Reaction Status Date / Time Sulfa (Sulfonamide Allergy Unknown Unknown Verified 04/07/25 04:50 Antibiotics) Home Medications ?Medication ?Instructions ?Recorded ?Confirmed ?Type ondansetron 4 mg disintegrating 4 mg PO Q8H PRN nausea and 04/07/25 Rx tablet vomiting #10 tabs pantoprazole 40 mg tablet,delayed 40 mg PO HS 4 weeks #28 tabs 04/07/25 Rx release (Protonix) chlorthalidone 25 mg tablet mg 04/09/25 History potassium chloride 10 mEq meq PO 04/09/25 History tablet,extended release Laboratory Tests 04/08/25 04/09/25 18:57 05:09 WBC 16.4 H K/mm3 13.0 H K/mm3 (4.5-10.0) (4.5-10.0) RBC 5.11 M/mm3 4.61 M/mm3 (4.6-6.20) (4.6-6.20) Hgb 16.0 g/dL 14.2 g/dL (14.0-18.0) (14.0-18.0) Hct 44.7 % 41.3 L % (42.0-52.0) (42.0-52.0) MCV 87.5 fl 89.6 fl (80-100) (80-100) MCH 31.3 pg 30.8 pg (26-34) (26-34) MCHC 35.8 g/dl 34.4 g/dl (32-36) (32-36) RDW 13.3 % 13.5 % (11.5-14.5) (11.5-14.5) Plt Count 216 k/mm3 180 k/mm3 (150-375) (150-375) MPV 10.1 fl 10.0 fl (7.4-10.4) (7.4-10.4) Immature Gran % (Auto) 0.6 H % 0.5 % (0-0.5) (0-0.5) Neut % (Auto) 72.0 % 69.2 % (45.5-73.1) (45.5-73.1) Lymph % (Auto) 18.9 % 21.5 % (18.3-44.2) (18.3-44.2) [place] % (Auto) 7.5 % 7.6 % (2.6-8.5) (2.6-8.5) Eos % (Auto) 0.7 % 1.0 % (0-4.4) (0-4.4) Baso % (Auto) 0.3 % 0.2 % (0.2-1.2) (0.2-1.2) Lymph # (Auto) 3.11 K/mm3 2.79 K/mm3 (0.9-3.2) (0.9-3.2) [place] # (Auto) 1.2 H K/mm3 1.0 H K/mm3 (0.1-0.6) (0.1-0.6) Eos # (Auto) 0.1 K/mm3 0.1 K/mm3 (0-0.3) (0-0.3) Baso # (Auto) 0.1 K/mm3 0.0 K/mm3 (0.0-0.1) (0.0-0.1) Abs Immat Gran (auto) 0.10 H K/mm3 0.06 H K/mm3 (0.00-0.031) (0.00-0.031) Absolute Neuts (auto) 11.8 H K/mm3 9.0 H K/mm3 (1.3-6.7) (1.3-6.7) Absolute Nucleated RBC 0.000 K/mm3 0.000 K/mm3 (0.0-0.012) (0.0-0.012) Nucleated RBC % 0.0 % 0.0 % (0.0-0.2) (0.0-0.2) PT 14.4 Seconds (11.1-14.7) INR 1.1 Sodium 137 mmol/L 137 mmol/L (137-145) (137-145) Potassium 3.3 L mmol/L 3.3 L mmol/L (3.4-5.0) (3.4-5.0) Chloride 101 mmol/L 98 mmol/L (98-107) (98-107) Carbon Dioxide 26 mmol/L 31 H mmol/L (22-30) (22-30) Anion Gap 10 mmol/L 8 mmol/L (4-12) (4-12) BUN 10 D mg/dL 10 mg/dL (9-20) (9-20) Creatinine 0.99 mg/dL 1.08 mg/dL (0.7-1.3) (0.7-1.3) Estim Creat Clear Calc 82 ml/min 76 ml/min Estimated GFR > 60 > 60 (59 - ) (59 - ) Glucose 129 H mg/dL 120 H mg/dL (65-110) (65-110) Calcium 9.4 mg/dL 8.8 mg/dL (8.4-10.2) (8.4-10.2) Magnesium 2.0 mg/dL 2.0 mg/dL (1.6-2.3) (1.6-2.3) Total Bilirubin 1.7 H mg/dL 1.8 H mg/dL (0.2-1.3) (0.2-1.3) AST 33 U/L 34 U/L (17-59) (17-59) ALT 34 U/L 32 U/L (6-50) (6-50) Alkaline Phosphatase 79 U/L 67 U/L (38-126) (38-126) Troponin I < 0.012 ng/mL (0.000-0.034) Total Protein 8.0 g/dL 6.9 g/dL (6.3-8.2) (6.3-8.2) Albumin 4.5 g/dL 3.9 g/dL (3.5-5.1) (3.5-5.1) Lipase 39 U/L (23-300) Procalcitonin 0.2 ng/mL Urine Color Yellow (Yellow) Urine Appearance Turbid H (Clear) Urine pH 6.0 (5.0-9.0) Ur Specific [place] 1.027 (1.001-1.035) Urine Protein Trace mg/dL (Negative) Urine Glucose (UA) Negative mg/dL (Negative) Urine Ketones 2+ H mg/dL (Negative) Ur Blood (Man) 1+ H (Negative) Urine Nitrate Negative (Negative) Urine Bilirubin Negative (Negative) Urine Urobilinogen 1.0 mg/dL (<2.0) Leukocyte Esterase Rfl Negative SULEMA/UL (Negative) Urine RBC 11-20 H /hpf (0-2) Urine WBC 0-5 /hpf (0-3) Ur Squamous Epith Cells None seen /hpf (Few) Urine Bacteria None seen /hpf Urine Casts 0-2 Patient hx anesthesia problems: none Family hx anesthesia problems: none Results Review: All pre-operative results and documents have been reviewed as part of the pre- operative evaluation. [facility] Past Medical History Medical History Hypertension Surgical History Surgical History History of surgery on arm Social History Social History Smoking status: Never smoker Alcohol intake: never Substance use: never Substance use type: does not use Lack of Transportation: No Lack of Food: Never True Current Housing: I Have Housing Concerned About Future Housing: No Difficulty Paying Gas/Electric Bills: No Difficulty Paying for Meds: No Currently Unemployed: No Education: Bachelor's Degree Difficulty w/ Childcare or Family Care: No Spiritual care concerns: No Anes - Eval Final PreProcedure Day of Procedure 04/09/25 18:07 Patient weight: obese Heart: regular rate and rhythm Lungs: clear to auscultation Airway: Mallampati scale class II Neurological: alert and oriented Last oral intake: >/= 8 hours ASA classification: II Emergent: no Anesthetic plan: proceed Anesthesia type and monitoring: general ETT and standard monitoring Results Review: All pre-operative results and documents have been reviewed as part of the pre- operative evaluation. Informed Consent: The patient's anesthetic plan and its attendant risks and benefits were discussed with the patient/family/POA. Questions were solicited and answers provided to the satisfaction of the patient/family/POA.
[2025-04-09] MEDS: LIDO 1%/EPINEPHRINE 1:100,000 20 ML VIAL 30 ML INFILTRATE (18:49)
[2025-04-09] MEDS: BUPivacaine HCL 0.5% 10 ML AMP 30 ML INFILTRATE (18:53)
--- NOTE | 2025-04-09 18:54 | S_PTH ---
PATIENT: Foster Arriola LOC: [id number] U#:[id number] AGE/SX: 49/M ROOM: 302 RE04/09/[address]: Melani Barragan MD : [id number] BED: 01 DIS: 04/10/2025 SPEC #: [id number] RECD: 04/10/25 08:11 STATUS: LUBA REShon #: [id number] JUAN: 04/09/25 18:[address]: Devon Parsons DEPT: [facility] Surgical RECD BY: Radha Reeves ENTERED: 04/10/25 08:11 SP TYPE: Surgical OTHR DR: Melani Barragan MD Tissues: A - Gallbladder Procedures: Hematoxylin and Eosin Stain Gross and Microscopic Level 3
--- NOTE | 2025-04-09 19:49 | P.OP_ITS ---
Procedure Note - Detailed Date of Procedure 04/09/25 Pre-op Diagnosis Acute Cholecystitis secondary to cholelithiasis Post-op Diagnosis Same Procedure Performed Laparoscopic cholecystectomy Surgeon Devon Parsons MD Fretted Instrument Inspector BAKARI Styles Anesthesia General Indications patient is a 49-year-old white male presented to the emergency room 2 days in a row with complaints of epigastric abdominal pain. When he was finally admitted to the hospital he was found have acute cholecystitis secondary to cholelithiasis. Elevated white blood cell count and CT scan showed gallbladder wall thickening pericholecystic fluid and probable gallstones. Abdominal ultrasound revealed gallstones as well as pericholecystic fluid edematous gallbladder wall consistent with acute cholecystitis secondary to cholelithiasis. He presents now for an urgent laparoscopic cholecystectomy. Findings The gallbladder was distended and acutely inflamed. It was hyperemic with edema of the gallbladder wall. Small amount of pericholecystic fluid was noted. No adhesions of the duodenum, stomach, or colon or omentum was seen. Multiple gallstones were palpated the gallbladder once it was removed. Description of Procedure After informed consent was obtained patient brought to the operating room was placed supine position and general endotracheal anesthesia was administered. The abdomen was then prepped and draped usual sterile fashion. A time-out was then performed correctly identifying the patient as well as procedure to be performed. He was on scheduled IV antibiotics. I entered the abdomen left upper quadrant utilizing a 5mm Optiview port. Once inside the abdomen insufflated to adequate pneumoperitoneum of 15mmHg of CO2. There were no he adhesions to obscure the view of the around the umbilicus so I placed a 5mm periumbilical trocar port. I then placed a 12mm epigastric trocar port and then 2 right lateral subcostal 5mm trocar ports all under direct visualization. The gallbladder was seen in the right upper quadrant and was very distended with thickening of the wall and hyperemia. Due to its distention in need to be aspirated prior to being able to hold with a laparoscopic grasper. A laparoscopic aspirating needle was then placed into the abdomen through the most lateral right subcostal port and then it was used to puncture the dome of the gallbladder. Bile was aspirated and partially decompressed. I then removed the aspirating needle from the gallbladder and then placed a laparoscopic clamp onto the dome of the gallbladder and the gallbladder was elevated over the right half of the liver towards the right shoulder. A 2nd grasper was then used to hold the gallbladder at the infundibulum. I then proceeded to strip down the visceral peritoneum off of the infundibular gallbladder and to identify the cystic duct. Cystic duct was then dissected out circumferentially. The cystic artery was identified and dissected out circumferentially as well. The posterior wall the gallbladder at the infundibulum dissected free liver into the critical view was obtained. At this point I then placed 2 clips proximally cystic duct and 2 clips distally high on infundibular gallbladder. Cystic duct was then divided Endo Andre. In a similar fashion cystic artery clipped and divided as well. The gallbladder was then resected off the liver utilized electrocautery without spilling any bile or any gallstones. Once the gallbladder was freed from the liver is placed into an Endo-Catch bag and brought out through the epigastric trocar port site. Gallbladder and contents were sent to pathology for examination. I then irrigated out the right upper quadrant abdomen gallbladder fossa sterile saline solution. Hemostasis was good. No evidence of bile leak was seen. Then aspirated the fluid from the right upper quadrant the abdomen from the pelvis. I then removed all the trocar ports under visualization all port sites appeared hemostatic. The abdomen is then allowed to decompress. The 12mm epigastric trocar port fascial defect was then closed utilizing 0 Vicryl suture at the fascial level. The skin edges in all the port sites were then approximated utilizing a running subcuticular 4-0 Monocryl suture. The incisions were then cleaned the skin glue was applied. The patient tolerated the procedure well no complications. All sponges, needles, and instrument counts were correct at the end procedure. EBL was _50__cc. The patient was awakened and taken to recovery in stable and satisfactory condition. Implants None Estimated Blood Loss 50 Drains No Packing No Pathology Yes ( gallbladder and gallstones to pathology) Complications No immediate complications Condition Stable Disposition PACU [facility] Billing Surgery - Charge Forward: Surgery Billing
[2025-04-10 04:19] VITALS: BP 111/58; PULSE 64; RESP 20; TEMP 36.4; O2SAT 94
[2025-04-10] MEDS: LACTATED RINGERS 1,000 ML 125 ML IV CONT (05:16)
[2025-04-10] MEDS: HYDROcodone/acetaminophen (*CRX) 5-325 MG TABLET 1 TAB PO ×2 (05:17→12:31)
[2025-04-10 06:03] LABS: Hematocrit 39.0 % (42.0-52.0); Hemoglobin 13.4 g/dL (14.0-18.0); Immature Granulocyte Percent A 0.6 % (0-0.5); Lymphocytes Absolute Auto 1.64 K/mm3 (0.9-3.2); Mean Corpuscular HGB Conc 34.4 g/dl (32-36); Mean Corpuscular Hemoglobin 31.2 pg (26-34); Mean Corpuscular Volume 90.7 fl (80-100); Nucleated Red Blood Cells Absolute Auto 0.000 K/mm3 (0.0-0.012); Nucleated Red Blood Cells Perc 0.0 % (0.0-0.2); Platelet Count Result 188 k/mm3 (150-375); Red Blood Count 4.30 M/mm3 (4.6-6.20); White Blood Count 10.5 K/mm3 (4.5-10.0)
[2025-04-10 06:34] LABS: Alanine Aminotransferase 51 U/L (6-50); Albumin Level 3.6 g/dL (3.5-5.1); Alkaline Phosphatase 71 U/L (38-126); Anion Gap 11 mmol/L (4-12); Aspartate Amino Transferase 56 U/L (17-59); Bilirubin,Total 0.9 mg/dL (0.2-1.3); Blood Urea Nitrogen 13 mg/dL (9-20); Calcium 8.7 mg/dL (8.4-10.2); Carbon Dioxide 26 mmol/L (22-30); Chloride 100 mmol/L (98-107); Estimated CRCL calculation 86 ml/min; Estimated Glomerular Filt Rate > 60; Glucose 129 mg/dL (65-110); Magnesium 2.1 mg/dL (1.6-2.3); Potassium 3.7 mmol/L (3.4-5.0); Sodium 137 mmol/L (137-145); Total Protein 6.8 g/dL (6.3-8.2)
[2025-04-10 08:00] VITALS: BP 120/77; PULSE 72; RESP 18; TEMP 37.3; O2SAT 94; O2SAT 95
--- NOTE | 2025-04-10 08:15 | P.PNAN_ITS ---
Anes - Prog Note Post-Op Date/Time: 04/10/25 08:15 Cardiovascular status: normal Respiratory status: normal Airway patency: baseline Mental status: baseline Vital Signs: Last Vital Signs Temp 36.4 C L 04/10/25 04:19 Pulse 64 04/10/25 04:19 Resp 20 04/10/25 04:19 BP 111/58 L 04/10/25 04:19 Pulse Ox 94 04/10/25 04:19 O2 Del Method Room Air 04/09/25 21:10 O2 Flow Rate 8 04/09/25 19:59 Pain Score (VAS): 2 I/O: Intake & Output 04/09/25 04/10/25 04/10/25 23:59 07:59 15:59 Intake Total 960.4 1300 Balance 960.4 1300 Laboratory Tests 04/10/25 05:20 04/10/25 05:20 04/10/25 05:20 WBC 10.5 H RBC 4.30 L Hgb 13.4 L Hct 39.0 L MCV 90.7 MCH 31.2 MCHC 34.4 RDW 13.3 Plt Count 188 MPV 10.1 Immature Gran % (Auto) 0.6 H Neut % (Auto) 77.9 H Lymph % (Auto) 15.7 L [place] % (Auto) 5.7 Eos % (Auto) 0.0 Baso % (Auto) 0.1 L Lymph # (Auto) 1.64 [place] # (Auto) 0.6 Eos # (Auto) 0.0 Baso # (Auto) 0.0 Abs Immat Gran (auto) 0.06 H Absolute Neuts (auto) 8.2 H Absolute Nucleated RBC 0.000 Nucleated RBC % 0.0 Sodium 137 Potassium 3.7 Chloride 100 Carbon Dioxide 26 Anion Gap 11 BUN 13 Creatinine 0.95 Estim Creat Clear Calc 86 Estimated GFR > 60 Glucose 129 H Calcium 8.7 Magnesium 2.1 Total Bilirubin 0.9 AST 56 ALT 51 H Alkaline Phosphatase 71 Total Protein 6.8 Albumin 3.6 Patient Feedback: Patient satisfied with anesthetic care.
--- NOTE | 2025-04-10 11:07 | P.PNGS_ITS ---
Progress Note: A&P Assessment and Plan (1) Acute cholecystitis: Code(s): K81.0 - Acute cholecystitis Status: Acute Assessment and Plan: * POD1 s/p laparoscopic cholecystectomy. Incisions healing appropriately. P atient notes some abdominal pain, mainly around his incisions. Ambulating without assistance. Voiding appropriately. Tolerating full liquid diet without nausea or vomiting. Labs stable. Once able to tolerate regular diet, patient is surgically stable for discharge. He will follow up with Dr. Parsons in outpatient clinic in 2 weeks. (2) Elevated bilirubin: Code(s): R17 - Unspecified jaundice Status: Acute Assessment and Plan: * Total bilirubin normalized to 0.9. (3) Hypokalemia: Code(s): E87.6 - Hypokalemia Status: Acute Assessment and Plan: * Potassium normalized to 3.7 (4) Hypertension: Code(s): I10 - Essential (primary) hypertension Status: Chronic Assessment and Plan: * BP stable. Management per Hospitalist. Plan I have discussed the patient's case and plan of care with Dr. Parsons. Subjective Subjective Date/Time Seen: 04/10/25 11:07 Post Op day: 1 Patient reports: no new complaints, feels better, tolerating liquids well and no bowel movement Interval history: POD1 s/p laparoscopic cholecystectomy. Patient is doing well today. Slight fever of 100.4 last night around 8 pm that has since normalized. Tolerating full liquid diet without nausea or vomiting. Voiding appropriately. No BM yet. Notes some abdominal pain, mostly around incisions. WBC down to 10.5. Exam Const: General: comfortable and no acute distress GI: Inspection: non-distended GI Palp: Yes Soft to palpation, Yes Tenderness to palpation present (GI) and No Guarding due to palpation present (GI) Auscultation: normal bowel sounds Other: Incisions clean and dry with glue intact. No signs of infection, dehiscence, or necrosis. Ecchymosis surrounding incisions. Objective Data Vital Signs Vital Signs: Vital Signs - 24 hr 04/09/25 14:00 04/09/25 19:44 04/09/25 19:59 Temperature 99.1 F 100.4 F H Pulse Rate 92 90 89 Respiratory Rate 18 15 17 Blood Pressure 146/92 H 90/56 L 93/55 L Pulse Oximetry 96 94 96 Oxygen Delivery Simple Face Mask Simple Face Mask Oxygen Flow Rate 8 8 09/08/25 20:14 04/09/25 20:29 04/09/25 20:44 Temperature Pulse Rate 100 97 95 Respiratory Rate 15 15 20 Blood Pressure 105/76 121/87 133/87 Pulse Oximetry 95 95 96 Oxygen Delivery Room Air Room Air Room Air Oxygen Flow Rate 04/09/25 21:10 04/09/25 21:15 04/09/25 21:30 Temperature 98.5 F 99.0 F Pulse Rate 91 89 Respiratory Rate 16 16 Blood Pressure 127/83 124/82 Pulse Oximetry 94 92 Oxygen Delivery Room Air Oxygen Flow Rate 04/09/25 22:00 04/09/25 23:00 04/10/25 04:19 Temperature 97.1 F L 98.4 F 97.5 F L Pulse Rate 95 85 64 Respiratory Rate 14 18 20 Blood Pressure 100/62 118/67 111/58 L Pulse Oximetry 92 94 94 Oxygen Delivery Oxygen Flow Rate 04/10/25 08:00 04/10/25 08:00 Temperature 99.1 F Pulse Rate 72 Respiratory Rate 18 Blood Pressure 120/77 Pulse Oximetry 94 95 Oxygen Delivery Room Air Oxygen Flow Rate Intake/Output Intake/Output: Intake & Output 04/07/25 04/08/25 04/09/25 04/10/25 23:59 23:59 23:59 23:59 Intake Total 2060.4 1780 Balance 2060.4 1780 Meds/Results Medications: Active Medications Generic Name Dose Route Start Last Admin Trade Name Freq PRN Reason Stop Dose Admin Acetaminophen 1,000 mg 04/09/25 20:53 Acetaminophen 500 Mg Tablet PO Q6H PRN Mild Pain (1-3) or Fever Hydrocodone Bitart/Acetaminophen 1 tab 04/09/25 20:53 04/10/25 05:17 Hydrocodone/Acetaminophen (*Crx) 5-325 Mg Tablet PO 1 tab Q4H PRN Administration Pain Rated 4-6 Hydromorphone HCl 0.5 mg 04/09/25 00:39 04/09/25 21:10 Hydromorphone Hcl Inj (*Crx) 1 Mg/Ml Syr IV PUSH 0.5 mg Q4H PRN Administration Pain Rated 7-10 IF NPO Lactated Ringer's 1,000 mls @ 100 mls/hr 04/09/25 00:40 04/10/25 05:16 Lr - Lactated Ringers Iv IV CONT 125 mls/hr .Q10H DELFIN Administration Ondansetron HCl 4 mg 04/09/25 00:39 Ondansetron Inj 4 Mg/2 Ml Vial IV PUSH Q4H PRN Nausea Oxycodone HCl 5 mg 04/09/25 20:53 Oxycodone Hcl (*Crx) 5 Mg Tab Ir PO Q4H PRN Pain Rated 7-10 Radiology Results: ITS Impressions Chest X-Ray 04/09/25 09:24 IMPRESSION: 1: Small opacities in the mid and lower lungs which represents atelectasis/scarring or infiltrates. Abdomen Ultrasound 04/09/25 10:22 IMPRESSION: 1. Cholelithiasis with pericholecystic edema and inflammatory stranding but with negative sonographic Baca sign which is equivocal for acute cholecystitis. Could consider HIDA scan for further evaluation. Abdomen/Pelvis CT 04/09/25 10:49 IMPRESSION: 1. Mild thickening of the weinstein of the gallbladder with a small amount of pericholecystic fat stranding and fluid. Findings are concerning for acute cholecystitis. Consider a HIDA scan for further assessment. 2. CT findings suggest a benign 2.9 cm hemangioma in the right hepatic lobe. Labs Labs: Laboratory Results - last 24 hr 04/10/25 05:20 WBC 10.5 H RBC 4.30 L Hgb 13.4 L Hct 39.0 L MCV 90.7 MCH 31.2 MCHC 34.4 RDW 13.3 Plt Count 188 MPV 10.1 Immature Gran % (Auto) 0.6 H Neut % (Auto) 77.9 H Lymph % (Auto) 15.7 L [place] % (Auto) 5.7 Eos % (Auto) 0.0 Baso % (Auto) 0.1 L Lymph # (Auto) 1.64 [place] # (Auto) 0.6 Eos # (Auto) 0.0 Baso # (Auto) 0.0 Abs Immat Gran (auto) 0.06 H Absolute Neuts (auto) 8.2 H Absolute Nucleated RBC 0.000 Nucleated RBC % 0.0 Sodium 137 Potassium 3.7 Chloride 100 Carbon Dioxide 26 Anion Gap 11 BUN 13 Creatinine 0.95 Estim Creat Clear Calc 86 Estimated GFR > 60 Glucose 129 H Calcium 8.7 Magnesium 2.1 Total Bilirubin 0.9 AST 56 ALT 51 H Alkaline Phosphatase 71 Total Protein 6.8 Albumin 3.6
[2025-04-10 12:00] VITALS: BP 133/79; PULSE 70; RESP 18; TEMP 37.3; O2SAT 100
--- NOTE | 2025-04-10 12:12 | PM.DS ---
DS: Admitting Diagnosis Discharge Date 04/10/2025 Admitting Diagnosis Acute cholecystitis DS: Discharge Diagnosis Discharge Diagnosis (1) Acute cholecystitis: Code(s): K81.0 - Acute cholecystitis Status: Acute Assessment and Plan: ER findings include probable acute cholecystitis with gallbladder distention and pericholecystic induration on CT of abdomen pelvis with and without contrast compared to the prior CT. Chest x-ray unrevealing of acute cardiopulmonary abnormality, official radiology interpretation is pending. His WBC count is 16.4 increased from 11.8 the day prior Total bilirubin 1.7 increasing from normal the day prior. LFTs otherwise within normal limits. General surgery consulted US of RUQ completed s/p IV Zosyn d/c IV fluids s/p lap cholecystectomy 04/09 patients diet was advanced to regular, tolerating pain controlled patient ready for discharge, general surgery placed post surgical discharge instructions and orders for pain medicine patient to follow up with general surgery as outpatient (2) Leukocytosis: Code(s): D72.829 - Elevated white blood cell count, unspecified Status: Acute Assessment and Plan: WBC 16.4 on admission WBC 10.5 continue IV Zosyn f/u blood cultures better (3) Hypokalemia: Code(s): E87.6 - Hypokalemia Status: Acute Assessment and Plan: s/p 40 mEq potassium chloride IVPB ordered magnesium level wnl k 3.7 today, better DS: Summary Hospital Course Reason for hospitalization: Abdominal pain Hospital Course: Patient presented to the ER with complaints of abdominal pain. Patient had presented to the ER the day prior although his CT that was normal. Patient's repeat CT on the day of admission showed acute cholecystitis with gallbladder distension and pericholecystic induration and his white blood cell count was 16.4. Patient's total bilirubin was 1.7 which was increased from normal the day prior. General surgery was consulted. Patient had an ultrasound of the right upper quadrants which showed acute cholecystitis. Patient was on IV Zosyn and IV fluids. Patient had a laparoscopic cholecystectomy on 04/09/25 by General surgery. Patient tolerated the procedure well with no complaints. Pain was controlled with oral medications. Patient was treated for hyperkalemia with potassium replacements. Patient was tolerating a regular diet. General surgery cleared patient for discharge. Patient was discharged home with family. Patient will follow up with PCP within 2 weeks of discharge. Patient will follow-up with general surgeon as directed. Time Spent with Patient Time attestation: Total time spent providing and/or coordinating discharge services: 25 minutes Exam Const: General: comfortable and no acute distress Other: A&O x3 HENMT: Mouth: Yes dry mucous membranes Eyes: Pupils: Equal, round and reactive pupils present Resp: Effort & Inspection: normal respiratory effort Auscultation: clear to auscultation bilaterally Cardio: Rate: regular rate Rhythm: regular rhythm GI: Inspection: non-distended Other: Hypoactive bowel sounds. post surgical. Skin: General skin exam: normal color and no rashes or lesions noted Neuro: Cranial nerves: Yes Equal, round and reactive pupils present Motor exam (neuro): 5/5 motor strength present throughout Extrem: General: no edema DS: Data Data Completed and Pending Pending studies at discharge: Pending at discharge 04/09/25 18:54 Surgical [PTH] Routine Labs on day of discharge: Labs from last 24 hours 04/10/25 05:20 WBC 10.5 H RBC 4.30 L Hgb 13.4 L Hct 39.0 L MCV 90.7 MCH 31.2 MCHC 34.4 RDW 13.3 Plt Count 188 MPV 10.1 Immature Gran % (Auto) 0.6 H Neut % (Auto) 77.9 H Lymph % (Auto) 15.7 L [place] % (Auto) 5.7 Eos % (Auto) 0.0 Baso % (Auto) 0.1 L Lymph # (Auto) 1.64 [place] # (Auto) 0.6 Eos # (Auto) 0.0 Baso # (Auto) 0.0 Abs Immat Gran (auto) 0.06 H Absolute Neuts (auto) 8.2 H Absolute Nucleated RBC 0.000 Nucleated RBC % 0.0 Sodium 137 Potassium 3.7 Chloride 100 Carbon Dioxide 26 Anion Gap 11 BUN 13 Creatinine 0.95 Estim Creat Clear Calc 86 Estimated GFR > 60 Glucose 129 H Calcium 8.7 Magnesium 2.1 Total Bilirubin 0.9 AST 56 ALT 51 H Alkaline Phosphatase 71 Total Protein 6.8 Albumin 3.6 Discharge Plan Discharge Attending physician on discharge: Melani Barragan Consulting providers: Devon Parsons; Yajaira Go; Vane Coombs; Tristan Frausto; John Sprague; Amira Mancia; Dayanara Edwards; Andrea Bailon; Jin Pascual Discharging Clinician: Vane Coombs Patient Disposition: Home Activity: other - see discharge instructions Diet: regular Wound Care Instructions: other - see discharge instructions Discharge Instructions: May discharge home when stable. Follow up with Dr. Parsons in the office in 2 weeks. Patient to call [phone] for an appointment. May shower in 24hours but do not soak incisions under water for 2 weeks. No lifting more than 10 to 15 lb for 2 weeks. May advance diet as tolerated. No driving for at least 3 days or until no longer taking any narcotic pain medication. Resume all home medications. Prescription for narcotic pain medicines will be sent to the patient's pharmacy if needed. May use Tylenol and/or ibuprofen in addition to or in place of narcotic pain medications for postoperative pain. Patient Instructions: Antibiotic Form Patient Language: Georgian Stand Alone Forms: General Discharge Information Follow-up/Referrals: [facility] [Other] Referral Note: Call for an appt to follow up with your PCP within 1-2 weeks of discharge Discharge Medications: Continued potassium chloride 10 mEq tablet extended release PO chlorthalidone 25 mg tablet Discontinued ondansetron 4 mg tablet,disintegrating 4 mg PO Q8H PRN (Reason: nausea and vomiting) Qty: 10 0RF No Action losartan 25 mg tablet 25 mg PO DAILY Date of admission: 04/09/25 00:39 Primary Care Provider: [facility] Admitting Provider: Melani Barragan Attending physician on admission: Melani Barragan Condition: Stable Quality VTE Prophylaxis VTE prophylaxis: mechanical ordered
== END 2025-04-10 13:49 | disposition home or self-care (01) ==
LOC: ANHED 18:41 → ANH3MEDSUR 04-09 01:14
PROVIDERS: Emergency Medicine; Nurse Practitioner Adult Health; Surgery; Admitting Provider General Practice; Emergency Provider Student in an Organized Health Care Education/Training Program; Visit Provider General Practice
PROC: 0FT44ZZ Resection of Gallbladder, Percutaneous Endoscopic Approach (ICD-10-PCS; CPT 47562; principal; 2025-04-09 16:00)
DX: K80.12 Calculus of gallbladder with acute and chronic cholecystitis without obstruction (principal); D72.829 Elevated white blood cell count, unspecified; I10 Essential (primary) hypertension; E87.6 Hypokalemia; R31.29 Other microscopic hematuria
CPT/HCPCS: 47562; 36415; 71045; 74178; 76705; 80053; 81001; 83690; 83735; 84145; 84484; 85025; 85610; 88304; 93005; 96365; 96375; 96376; 99285; A9270; G0378; G0379; J0330; J1100; J1171; J1885; J2003; J2004; J2405; J2543; J2704; J3010; J3480; J7040; J7120; Q9967